=== PATIENT | male | born 1980 | race Caucasian/White ===

== ENCOUNTER 2020-05-13 10:50 | Emergency (ER) | payer SELFPAY ==
[2020-05-13 10:54] VITALS: BP 144/89; PULSE 86; RESP 15; TEMP 36.1; O2SAT 99; BMI 28.8
--- NOTE | 2020-05-13 10:59 | W.ED.EXTPRO ---
HPI - Extremity Problem General: Chief complaint: Extremity Problem,Nontraumatic Stated complaint: R KNEE PAIN Time Seen by Provider: 05/13/20 10:51 Source: patient Mode of arrival: ambulatory (using crutches) Limitations: no limitations History of Present Illness: HPI Narrative: Patient is a 39-year-old male who presents to ED today for evaluation of his right knee pain. Patient tells me approximately 2 weeks ago he noticed severe swelling to the knee joint. He denies any injury or trauma. He states the swelling subsided on its own but since then has continued to have pain underneath the kneecap . He states pain is worse with weight bearing and feels like the knee tadeo. He states over the last few days he has noticed some mild swelling returning. MD Complaint: joint swelling and joint pain Onset (ago): week(s) (2 wks ago) Pain Consistency: constant (swelling intermittent ) Location: right and lower extremity Radiation: none Relieving factors: immobilization, elevation and rest Exacerbating factors: weight bearing and walking Associated symptoms: Reports no associated symptoms; Deny chest pain or fever(s) Review of Systems Const: Denies: fever(s), chills, body aches, fatigue or malaise Card: Denies: chest pain Resp: Denies: dyspnea GI: Denies: nausea or vomiting Musc: Reports: joint pain (R knee) and joint swelling (R knee); Denies: neck pain, back pain, extremity pain, extremity swelling, joint redness, joint warmth or limited range of motion Neuro: Denies: headache(s), numbness in extremities, weakness in extremities or sensory changes [facility] ED PFSH: Social History (Updated 05/13/20 @ 10:58 by Asif Pennington RN) Smoking and tobacco status: current every day smoker cigarettes Packs smoked per day: 1 Alcohol intake: never Substance/Drug Use: never Physical Exam Const: COMMON NORMALS: no acute distress, average body habitus, patient oriented x3, no limitations, healthy appearing, alert and well nourished GENERAL APPEARANCE: cooperative ORIENTATION/CONSCIOUSNESS: Yes awake, Yes oriented to person, Yes oriented to place and Yes oriented to time Extremity: NARRATIVE EXTREMITY EXAM: TTP to superior/medial R knee with mild swelling noted; tenderness with downward compression of patella; no joint laxity noted; maintains ROM; no erythema/warmth overlying the joint GENERAL: Yes normal exam except as noted Neuro: COMMON NORMALS: patient oriented x3, moves all extremities, no focal motor deficits and no sensory deficits noted SENSORIUM/ORIENTATION: Yes alert, Yes oriented to person, Yes oriented to place and Yes oriented to time Skin: COMMON NORMALS: no rashes or lesions noted NARRATIVE SKIN EXAM: normal skin exam overlying R knee GENERAL SKIN EXAM: no rashes or lesions noted Course Vital Signs: Vital signs: Vital Signs Temperature 97.0 F L 05/13/20 10:54 Pulse Rate 93 05/13/20 11:34 Respiratory Rate 14 05/13/20 11:34 Blood Pressure 142/80 05/13/20 11:34 Pulse Oximetry 99 05/13/20 11:34 MDM - Extremity (Nontraumatic) Imaging Data^: XR R knee: Radiologist's impression: [address] [address] XRay Report Signed Patient: TARIK STAHL Unit #: [id number] : 1980 Age/Sex: 39 / M ADM Date: 05/13/20 Loc: ER Room/Bed: Attending Dr: Ordering Provider/Ordering MD: Jacquie Vogel Date of Service: 05/13/20 Procedure(s): XR knee RT 3V* 36041 Accession Number(s): [id number] Report Number: [id number] WS: [id number] XR knee RT 3V* [id number] REASON FOR EXAM: pain/swelling FINDINGS: The 3 knee joint compartment spaces are well preserved. No focal bony abnormality is identified. On the lateral view of the right knee there is displacement of a fat plane which may indicate the presence of a joint effusion. XR/XR knee RT 3V* [id number] IMPRESSION: Question of right knee joint effusion, no other abnormality identified. Dictated By: Randall Quarles Jr, MD Signed By: Randall Quarles Jr, MD Signed Date/Time: 05/13/20 1147 DD/ 1145 Discharge Plan Discharge Patient Disposition: Home Clinical Impression: Bursitis of right knee Qualifiers: Knee bursitis location: suprapatellar bursitis Qualified Code(s): M70.51 - Other bursitis of knee, right knee Condition: Stable Prescriptions: New prednisone 10 mg tablet 10 mg PO DAILY 10 Days Qty: 41 RF: 0 ibuprofen 800 mg tablet 800 mg PO Q8H PRN (Reason: pain) Qty: 20 RF: 0 Discharge Orders: Discharge ED (Routine); Ordered 05/13/20 Ordered By: Jacquie Vogel Patient Instructions: Bursitis - Prepatellar, Knee Bursitis (ED), RICE Therapy (ED) Coding Level of Care Code 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
--- NOTE | 2020-05-13 11:03 | XR_ITS ---
WS: [id number] XR knee RT 3V* [id number] REASON FOR EXAM: pain/swelling FINDINGS: The 3 knee joint compartment spaces are well preserved. No focal bony abnormality is identified. On the lateral view of the right knee there is displacement of a fat plane which may indicate the pre sence of a joint effusion. XR/XR knee RT 3V* [id number] IMPRESSION: Question of right knee joint effusion, no other abnormality identified.
[2020-05-13 11:34] VITALS: BP 142/80; PULSE 93; RESP 14; O2SAT 99
== END 2020-05-13 11:35 | disposition home or self-care (01) ==
PROVIDERS: Emergency Provider Physician Assistant
DX: M70.51 Other bursitis of knee, right knee (principal); F17.210 Nicotine dependence, cigarettes, uncomplicated
CPT/HCPCS: 73562; 99282